=== PATIENT | female | born 1975 | race American Indian/Alaskan Native ===

== ENCOUNTER 2017-07-18 09:11 | Emergency (ER) | payer SELFPAY ==
--- NOTE | 2017-07-18 11:19 | Emergency Department Report ---
HPI - General Chief Complaint: Extremity Problem,Nontraumatic Time Seen by Provider: 07/18/17 11:05 - HPI HPI: 42-year-old female presents to the emergency department with complaint of sharp shooting pain that starts in the distal forearm and wrist and shoots down to the hand. She also complains of some numbness in the index, middle and ring fingers at the fingertips. No decreased range of motion. This started about a month ago but was intermittent. It got very bad last night and then again today. 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 She has a history of a previous CVA. She has not taken anything for her symptoms prior to presentation. ED Past Medical Hx - Past Medical History Previous Medical History?: Yes Hx CVA: Yes - Surgical History Past Surgical History?: Yes Additional Surgical History: dental surgery tubal ligation - Social History Smoking Status: Former Smoker Substance Use Type: None ED Review of Systems ROS: Stated complaint: NUMBNESS IN FINGERS/SHARP PAIN Other details as noted in HPI Comment: All other systems reviewed and negative Constitutional: denies: chills, fever Eyes: denies: eye pain, eye discharge, vision change ENT: denies: ear pain, throat pain Respiratory: denies: cough, shortness of breath, wheezing Cardiovascular: denies: chest pain, palpitations Gastrointestinal: denies: abdominal pain, nausea, diarrhea Genitourinary: denies: urgency, dysuria, discharge Musculoskeletal: arthralgia. denies: back pain Skin: denies: rash, lesions Neurological: numbness, paresthesias Physical Exam - Physical Exam Vital Signs: Vital Signs 07/18/17 09:26 Temperature 98.7 F Pulse Rate 83 Respiratory 16 Rate Blood Pressure 161/101 O2 Sat by Pulse 100 Oximetry ED Course Vital Signs 07/18/17 09:26 Temperature 98.7 F Pulse Rate 83 Respiratory 16 Rate Blood Pressure 161/101 O2 Sat by Pulse 100 Oximetry Critical care attestation.: If time is entered above; I have spent that time in minutes in the direct care of this critically ill patient, excluding procedure time. ED Disposition Clinical Impression: Right wrist pain, Carpal tunnel syndrome of right wrist, Elevated blood pressure reading Disposition: TO HOME OR SELFCARE Is pt being admited?: No Condition: Stable Instructions: Carpal Tunnel Syndrome (ED) Additional Instructions: Please follow-up with your primary care physician. However regarding your current symptoms I recommend that you follow-up with an orthopedist and I have given you to different orthopedic groups as referrals. Return to the emergency Department with any worsening of your symptoms or any acute distress. Try and stay away from foods that are high in salt and caffeinated products to help with your blood pressure. Keep a blood pressure log and make sure to follow up with your primary care physician regarding this elevated blood pressure reading found today. Referrals: CARMELLA STEWARD MD [Primary Care Provider] - 3-5 Days LATOYA OCHOA MD [Staff Physician] - 3-5 Days [facility] [Provider Group] - 3-5 Days Time of Disposition: 11:45
[2017-07-18 12:00] VITALS: BP 179/90
--- NOTE | 2017-07-18 12:31 | XRay Report ---
RIGHT WRIST, 3 VIEWS: History: wrist pain, injury. Routine views demonstrate the carpal bones to be well mineralized with well preserved bony mineralization and interosseous joint spaces. The carpal and adjacent articular bones have normal contours. The surrounding soft tissues are unremarkable. IMPRESSION: Unremarkable right wrist.
== END 2017-07-18 11:58 | disposition home or self-care (01) ==
LOC: ED 09:11
DX: G56.01 Carpal tunnel syndrome, right upper limb (principal); R03.0 Elevated blood-pressure reading, without diagnosis of hypertension